=== PATIENT | female | born 1990 | race African-American/Black ===

== ENCOUNTER 2023-01-14 20:33 | Emergency (ER) | payer OTHER ==
[~2023-01-14] VITALS: Ht 165.1 cm; Wt 77.6 kg
--- NOTE | 2023-01-14 22:09 | NUR ---
BIBSELF FROM URGENT CARE C/O R EAR RINGING FOR "COUPLE DAYS" +H/A USING OTC EAR DROPS. PT A/OX4. TOLERATING R/A WELL WITH NO RESP DISTRESS.
--- NOTE | 2023-01-14 22:42 | NUR ---
PT EXAMINED BY DR TREVINO
[2023-01-14] MEDS ORDERED: OXYM15MI4 NS (22:52)
[2023-01-14] MEDS ORDERED: PRED20TA PO (22:52)
[2023-01-14] MEDS ORDERED: FLUT9.9S NS (22:52)
--- NOTE | 2023-01-14 23:24 | NUR ---
Patient discharged to home in stable condition. Written and verbal after care instructions given. Patient verbalizes understanding of instruction.
[2023-01-14 23:25] VITALS: BP 114/84; TEMP 98; O2SAT 100
== END 2023-01-14 23:25 | disposition home or self-care (01) ==
LOC: ER 20:37
DX: H92.03 Otalgia, bilateral (principal); Z60.2 Problems related to living alone

== ENCOUNTER 2025-04-08 13:19 | Emergency (ER) | payer OTHER ==
[~2025-04-08] VITALS: Ht 165.1 cm; Wt 78.0 kg
[~2025-04-08 13:19] MED LIST: FLUT9.9S NS; OXYM15MI4 NS; PRED20TA PO
[2025-04-08 13:44] VITALS: BP 115/78; TEMP 98.3; O2SAT 99
== END 2025-04-08 14:31 | disposition home or self-care (01) ==
LOC: ER 13:34
DX: R51.9 Headache, unspecified (principal); Z79.52 Long term (current) use of systemic steroids; V43.52XA Car driver injured in collision with other type car in traffic accident, initial encounter; Y93.89 Activity, other specified; Y92.410 Unspecified street and highway as the place of occurrence of the external cause; Y99.9 Unspecified external cause status